=== PATIENT | female | born 1970 | race Hispanic/Latino ===

== ENCOUNTER 2017-11-05 17:38 | Emergency (ER) | payer BC ==
[~2017-11-05] VITALS: Ht 152.4 cm; Wt 79.4 kg
[~2017-11-05 17:38] MED LIST: ALPRAZOLAM ER2 MG PO; AMANTADINE100 MG PO; ARMOUR THYROID90 MG PO; CEFUROXIME500 MG PO; DIFLUNISAL500 MG PO; DILANTIN100 MG PO; HYDROCORTISONE10 MG PO; HYDROXYZINE HCL50 MG PO; LEVETIRACETAM500 MG PO; ORPHENADRINE C100 MG PO; PROGESTERONE100 MG PO; PROZAC20 MG PO; RISPERIDONE0.25 MG PO; SERTRALINE HCL100 MG PO; SYMBYAX 12-501 EACH PO; TRAZODONE HCL50 MG PO
[2017-11-05] MEDS ORDERED: KETOROLAC TROMETHAMINE 30 MG/ML VIAL IV STA (18:21)
[2017-11-05] MEDS ORDERED: SODIUM CHLORIDE 0.9% 500ML 500 ML IV ONE (18:30)
[2017-11-05] MEDS ORDERED: METOCLOPRAMIDE HCL 10 MG/2ML VIAL IV ONE (18:30)
[2017-11-05] MEDS ORDERED: DIPHENHYDRAMINE HCL INJ 50 MG/ML VIAL IV ONE (18:30)
[2017-11-05] MEDS ORDERED: DEXAMETHASONE SOD PHOS 10 MG/1 ML VIAL IV ONE (18:30)
== END 2017-11-05 21:45 | disposition home or self-care (01) ==
LOC: ER 17:38
DX: G44.211 Episodic tension-type headache, intractable (principal); G43.909 Migraine, unspecified, not intractable, without status migrainosus; G40.909 Epilepsy, unspecified, not intractable, without status epilepticus
CPT/HCPCS: 81025; 96360; 96374; 96375; 96376; 99284; J1100; J1200; J1885; J2765; J7040